=== PATIENT | male | born 1995 | race Hispanic/Latino ===

== ENCOUNTER 2017-11-23 00:30 | Emergency (ER) | payer BC ==
[2017-11-23] MEDS ORDERED: IBUPROFEN 200 MG TAB ONE (00:49)
[2017-11-23] MEDS ORDERED: IBUPROFEN 400 MG TABLET ONE (00:49)
[2017-11-23] MEDS ORDERED: ACETAMINOPHEN EXTRA STRENGTH 500 MG TABLET ONE (00:49)
[2017-11-23 01:11] LABS: RAPID GROUP A STREP NEGATIVE (NEGATIVE)
== END 2017-11-23 01:55 | disposition home or self-care (01) ==
LOC: EDH 00:30
DX: J06.9 Acute upper respiratory infection, unspecified (principal)
CPT/HCPCS: 87804; 87880